=== PATIENT | male | born 1970 | race Caucasian/White ===

== ENCOUNTER 2020-02-29 09:09 | Day surgery (SDC) | payer BC ==
[~2020-02-29 09:09] MED LIST: Midazolam 1 MG/ML 2 ML SDV ONE; Propofol 200 MG/20 ML SDV ONE
[2020-02-29] MEDS ORDERED: Sodium Chloride 0.9% 10 ML Syringe FLUSH PRN (09:30)
[2020-02-29] MEDS: Lactated Ringers 1,000 ML IV SCH (10:40)
--- NOTE | 2020-02-29 10:50 | PCM.HPR ---
H & P Addendum review - H & P Addendum Review Date of Original H & P: 02/09/20 Date Reviewed: 02/29/20 Time Reviewed: 10:50 Patient was Examined: No Changes
[2020-02-29] MEDS ORDERED: Propofol 200 MG/20 ML SDV ONE (11:02)
[2020-02-29] MEDS ORDERED: Lidocaine 2% 5 ML SDV ONE (11:02)
[2020-02-29] MEDS ORDERED: Midazolam 1 MG/ML 2 ML SDV ONE (11:02)
--- NOTE | 2020-02-29 11:31 | PCM.OPNOTE ---
- General Post-Op/Procedure Note Date of Surgery/Procedure: 02/29/20 Operative Procedure(s): EGD with Bx. Colonoscopy with Bx Findings: Duodenitis Normal Colon Pre Op Diagnosis: Abd pain, chronic diarrhea Post-Op Diagnosis: same Anesthesia Technique: TERESE Primary Surgeon: Nikolai Carroll Anesthesia Provider: Nidhi Graham EBL in mLs: 0 Complications: None Condition: Good
--- NOTE | 2020-02-29 14:52 | OR ---
Date of Procedure: 02/29/2020 PREOPERATIVE DIAGNOSES: 1. Abdominal pain. 2. Chronic diarrhea. POSTOPERATIVE DIAGNOSES: 1. Duodenitis. 2. Normal colon. PROCEDURES: 1. EGD with biopsy. 2. Colonoscopy with multiple biopsies. ANESTHESIA: IV sedation. PROCEDURE IN DETAIL: The patient was brought to the procedure room where he was placed on his left side and IV sedation administered. Oral bite block was placed and the upper endoscope advanced into the esophagus under direct vision without difficulty. Vocal cords were viewed and were normal. The scope was advanced to the third portion of the duodenum. The first portion of the duodenum has patchy areas of inflammation but no ulceration. I did take biopsies of this. Antrum, body, and fundus were normal. Retroflexion was normal. Air was removed from the stomach and the scope was withdrawn through the esophagus which is normal. Patient tolerated this portion of the procedure well. Next, colonoscopy was performed after digital rectal exam was done, which was normal. Colonoscope was inserted and advanced to the level of the cecum without difficulty. Cecal position was confirmed by identifying the appendiceal lumen and ileocecal valve. Prep was good and surfaces were well visualized. Upon withdrawing the scope, the ascending, transverse, and descending colon were normal. Sigmoid colon and rectum were also normal. Retroflexion was normal. I did take a biopsy from all segments of the colon to rule out microscopic colitis. Air was removed and the scope withdrawn. Patient tolerated the procedure well and returned to recovery in stable condition. FOLLOWUP: The patient will follow up with Kenya Abdi PA-C, for review of biopsies. He should consider routine colon screening again in 10 years. MAGDI GARCIA MD /[id number]
== END 2020-02-29 12:42 | disposition home or self-care (01) ==
LOC: LL.SDS 09:09
PROVIDERS: ATTEND Surgery
DX: K29.80 Duodenitis without bleeding (principal); K52.9 Noninfective gastroenteritis and colitis, unspecified; E11.65 Type 2 diabetes mellitus with hyperglycemia; E66.01 Morbid (severe) obesity due to excess calories; Z79.899 Other long term (current) drug therapy; Z88.8 Allergy status to other drugs, medicaments and biological substances; Z68.39 Body mass index [BMI] 39.0-39.9, adult
CPT/HCPCS: 43239; 45380; 82962; J2001; J2250; J2704; J7120